=== PATIENT | male | born 1995 | race Caucasian/White ===

== ENCOUNTER 2016-06-28 23:47 | Emergency (ER) | payer SELFPAY ==
[~2016-06-28] VITALS: Ht 188 cm; Wt 148.3 kg
[~2016-06-28 23:47] MED LIST: BACT800T5 PO; CEPH500C3 PO
[2016-06-28 23:56] VITALS: BP 139/90; PULSE 87; RESP 16; TEMP 98.4; O2SAT 98
--- NOTE | 2016-06-29 01:00 | PD ---
HPI Chief Complaint: Laceration/Skin Injury Time Seen by Provider: 00:49 Travel History International Travel<30 days: No Contact w/Intl Traveler<30days: No Traveled to known affect area: No History of Present Illness HPI The patient is a 20-year-old male that at approximately 8 PM today he inverted his left foot and complains of left ankle and left foot pain. He noticed swelling as well in the area of the lateral ankle and foot. He has never fractured his ankle or foot before he states. PFSH Past Medical History Hx Anticoagulant Therapy: No Asthma: Yes Cardiovascular Problems: No Chemotherapy: No Cerebrovascular Accident: No Diabetes: No Diminished Hearing: No Hypertension: Yes Respiratory: Yes (ASTHMA) Immunizations Current: Yes Tetanus Vaccination: Never Vaccinated Past Surgical History Surgical History: No Previous Surgery Hysterectomy: No Social History Alcohol Use: Yes (ocassional) Tobacco Use: Yes (1/2 ppd) Substance Use: Yes (MARIJUANA EVERY DAY ) Allergies-Medications (Allergen,Severity, Reaction): Coded Allergies: Zithromax (Verified Allergy, Severe, HIVES, 06/29/16) Reported Meds & Prescriptions Reported Meds & Active Scripts Active Review of Systems Except as stated in HPI: all other systems reviewed are Neg Physical Exam Narrative GENERAL: The patient is alert, oriented 3 and slight apparent distress with his left foot/left ankle discomfort. His vital signs show blood pressure 139/ 90 at otherwise normal. SKIN: Focused skin assessment warm/dry. No skin rashes seen. HEAD: Atraumatic. Normocephalic. EYES: Pupils equal and round. No scleral icterus. No injection or drainage. ENT: No nasal bleeding or discharge. Mucous membranes pink and moist. NECK: Trachea midline. No JVD. CARDIOVASCULAR: Regular rate and rhythm. No murmur appreciated. RESPIRATORY: No accessory muscle use. Clear to auscultation. Breath sounds equal bilaterally. GASTROINTESTINAL: Abdomen soft, non-tender, nondistended. Hepatic and splenic margins not palpable. MUSCULOSKELETAL: No obvious deformities. No clubbing. No cyanosis. No edema. There is swelling laterally over the left ankle. Ankle drawer shows stable. There is tenderness of the anterior talo fibular and calcaneal fibular ligaments. There is also tenderness over the proximal fifth metatarsal on the left foot. Good capillary refill and pinprick is present distally. NEUROLOGICAL: Awake and alert. No obvious cranial nerve deficits. Motor grossly within normal limits. Normal speech. PSYCHIATRIC: Appropriate mood and affect; insight and judgment normal. Data Data Last Documented VS Vital Signs Date Time Temp Pulse Resp B/P Pulse Ox O2 Delivery O2 Flow Rate FiO2 06/28/16 23:56 98.4 87 16 139/90 98 Orders Ankle, Complete ([id number]) (06/29/16 00:50) Foot, Complete ([id number]) (06/29/16 00:50) MDM Medical Decision Making Medical Screen Exam Complete: Yes Emergency Medical Condition: Yes Medical Record Reviewed: Yes Interpretation(s) Ankle x-rays show soft tissue swelling without fracture. The foot x-rays show no fracture or subluxation of the left foot. Differential Diagnosis Fracture ankle, fracture foot, subluxation foot, dislocation anklehighly unlikely, sprain ankle, contusion foot Narrative Course The patient appears to have a sprained ankle and peroneus brevis strain of the left foot. The patient will be given a posterior short leg splint and crutches. Sepsis Criteria Severe Sepsis (+one): Organ Dysfunction Diagnosis Primary Impression: Sprain of left ankle Additional Instructions: As we discussed, elevate your ankle above your heart. Ice as useful and the first 24 hours. Motrin is taken one tablet 3 times a day for pain. Med/Other Pt SpecificInfo: Prescription(s) given Scripts Ibuprofen 800 Mg [id number] Mg PO TID #44 TAB Ref 0 Prov:Morales Johnson MD 06/29/16 Disposition: 01 DISCHARGE HOME Condition: Stable Morales Johnson MD Jun 29, 2016 01:00
--- NOTE | 2016-06-29 01:19 | RADHPO ---
EXAM DATE/TIME: 06/29/2016 01:06 [facility] COMPARISON: No previous studies available for comparison. INDICATIONS : Left foot pain post twisting. MEDICAL HISTORY : None. SURGICAL HISTORY : None. ENCOUNTER: Initial ACUITY: 1 day PAIN SCORE: 7/10 LOCATION: Left foot FINDINGS: Three view examination of the left foot demonstrates no soft tissue swelling, dislocation, or fractur e. The tarsal bones appear intact. The interphalangeal and metatarsophalangeal joints are intact. The calcaneus is intact. Bony mineralization is normal. CONCLUSION: No fracture or subluxation of the left foot. Tito Gutierrez MD on June 29, 2016 at 1:17 Board Certified Radiologist. This report was verified electronically.
--- NOTE | 2016-06-29 01:21 | RADHPO ---
EXAM DATE/TIME: 06/29/2016 01:07 [facility] COMPARISON: No previous studies available for comparison. INDICATIONS : Left ankle pain post twisting. MEDICAL HISTORY : None. SURGICAL HISTORY : None. ENCOUNTER: Initial ACUITY: 1 day PAIN SCORE: 7/10 LOCATION: Left ankle FINDINGS: There is lateral predominant soft tissue swelling. No radiopaque foreign body demonstrated. There is no fracture or subluxation. CONCLUSION: Soft tissue swelling without fracture. Tito Gutierrez MD on June 29, 2016 at 1:20 Board Certified Radiologist. This report was verified electronically.
[2016-06-29] MEDS ORDERED: IBUP800T23 PO (02:00)
== END 2016-06-29 02:15 | disposition home or self-care (01) ==
LOC: PHED 23:47
DX: S93.402A Sprain of unspecified ligament of left ankle, initial encounter (principal); I10 Essential (primary) hypertension; F17.210 Nicotine dependence, cigarettes, uncomplicated; F12.20 Cannabis dependence, uncomplicated; X50.1XXA Overexertion from prolonged static or awkward postures, initial encounter
CPT/HCPCS: 29515; 73610; 73630; 99283; E0113

== ENCOUNTER 2017-04-30 21:09 | Emergency (ER) | payer SELFPAY ==
[~2017-04-30] VITALS: Ht 188 cm; Wt 167.0 kg
[~2017-04-30 21:09] MED LIST changes: -BACT800T5 PO; -CEPH500C3 PO; +IBUP1TAB7 PO
[2017-04-30 21:14] VITALS: BP 122/79; PULSE 62; RESP 16; TEMP 98.4; O2SAT 98
[2017-04-30] MEDS ORDERED: GUAISYP4 PO (22:42)
--- NOTE | 2017-04-30 22:42 | PD ---
HPI Chief Complaint: Cold / Flu Symptoms Time Seen by Provider: 21:19 Travel History International Travel<30 days: No Contact w/Intl Traveler<30days: No Traveled to known affect area: No History of Present Illness HPI The patient is a 21-year-old male that this morning started vomiting with sore throat, headache and had diarrhea and cough. He denies any fever. He denies any shortness of breath. He is slightly nauseated now. He has minimal abdominal pain, what he does have appears to be in the left upper quadrant. He does have a history of asthma but denies any wheezing. PFSH Past Medical History Hx Anticoagulant Therapy: No Asthma: Yes Cardiovascular Problems: No Chemotherapy: No Cerebrovascular Accident: No Diabetes: No Diminished Hearing: No Hypertension: Yes Respiratory: Yes (ASTHMA) Immunizations Current: Yes ?: Not Past Surgical History Hysterectomy: No Social History Alcohol Use: Yes (ocassional) Tobacco Use: Yes (/ ppd) Substance Use: Yes (MARIJUANA EVERY DAY ) Allergies-Medications (Allergen,Severity, Reaction): Coded Allergies: azithromycin (Verified Allergy, Severe, HIVES, 04/30/17) Reported Meds & Prescriptions Reported Meds & Active Scripts Active Review of Systems Except as stated in HPI: all other systems reviewed are Neg Physical Exam Narrative GENERAL: Well-nourished, alert and oriented, obese patient in no respiratory distress. His vital signs are normal. SKIN: Focused skin assessment warm/dry. HEAD: Normocephalic. EYES: No scleral icterus. No injection or drainage. NECK: Supple, trachea midline. No JVD or lymphadenopathy. CARDIOVASCULAR: Regular rate and rhythm without murmurs, gallops, or rubs. RESPIRATORY: Breath sounds equal bilaterally. No accessory muscle use. Lungs clear to auscultation bilaterally. GASTROINTESTINAL: Abdomen soft, non-tender, nondistended. MUSCULOSKELETAL: No cyanosis, or edema. BACK: Nontender without obvious deformity. No CVA tenderness. Data Data Last Documented VS Vital Signs Date Time Temp Pulse Resp B/P (MAP) Pulse Ox O2 Delivery O2 Flow Rate FiO2 04/30/17 21:26 98 Room Air 04/30/17 21:14 98.4 62 16 122/79 (93) Orders Orders Influenzae A/B Antigen (04/30/17 21:32) Group A Rapid Strep Screen (04/30/17 21:32) Strep Culture (Group A) (04/30/17 21:45) [facility] Medical Decision Making Medical Screen Exam Complete: Yes Emergency Medical Condition: Yes Medical Record Reviewed: Yes Interpretation(s) The group A strep antigen is negative for group A strep antigen. The influenza A/B antigen is negative for flu a and flu B antigen. Differential Diagnosis Flu syndrome, viral syndrome, viral pharyngitis, strep pharyngitis, pneumonia, bronchitis, bronchospasm Narrative Course The patient does not have bronchitis, bronchospasm and his lungs are clear. He does have a viral syndrome. He tested negative for the flu and strep. Diagnosis Primary Impression: Viral syndrome Additional Instructions: Rest and increase liquids are necessary when you have a virus. He will get a work excuse for today, tomorrow. Do not drink alcohol or drive on the codeine containing cough syrup. Med/Other Pt SpecificInfo: Prescription(s) given Scripts Guaifenesin-Codeine Liq (Guaifenesin AC Liq) 100-10 Mg/5 Ml Syrp 10 ML PO Q4H Y for COUGH, #1 BOTTLE 0 Refills Prov: Morales Johnson MD 04/30/17 Disposition: 01 DISCHARGE HOME Condition: Stable Morales Johnson MD Apr 30, 2017 22:42
[2017-04-30] MEDS ORDERED: guaiFENesin/CODEINE SYRUP 200 MG/20 MG/10 ML CUP PO ONE (22:45)
== END 2017-04-30 22:58 | disposition home or self-care (01) ==
LOC: PHED 21:09
DX: B34.9 Viral infection, unspecified (principal); J45.909 Unspecified asthma, uncomplicated; I10 Essential (primary) hypertension; F17.210 Nicotine dependence, cigarettes, uncomplicated; Z88.1 Allergy status to other antibiotic agents
CPT/HCPCS: 87081; 87804; 87880; 99283